=== PATIENT | female | born 1960 | race Caucasian/White ===

== ENCOUNTER 2021-04-04 11:24 | Outpatient (CLI) | payer MEDICARE, OTHER, SELFPAY ==
[2021-04-04 11:10] VITALS: BP 85/53; PULSE 79; RESP 16; TEMP 37.3; O2SAT 91
[2021-04-04] MEDS: 0.9% Saline Lock 10 ML Syringe IV (11:22)
[2021-04-04] MEDS: 0.9% Normal Saline 1,000 ML 999 ML IV (11:25)
[2021-04-04 11:38] VITALS: BP 93/62; PULSE 73; RESP 16; TEMP 37.3; O2SAT 91; BMI 22.4
[2021-04-04 12:36] VITALS: BP 108/70; PULSE 85; RESP 16; TEMP 36.8; O2SAT 18
[2021-04-04 13:09] VITALS: BP 109/71; PULSE 84; RESP 18; TEMP 37.3; O2SAT 93
[2021-04-04 14:12] VITALS: BP 111/72; PULSE 88; RESP 18; TEMP 37.3; O2SAT 93
== END 2021-04-04 14:13 | disposition home or self-care (01) ==
LOC: MS3OUT 11:24 → MS3 11:25
PROVIDERS: Referring Provider Nurse Practitioner Acute Care; Visit Provider Nurse Practitioner Acute Care
DX: Z23 Encounter for immunization (principal); U07.1 COVID-19; D84.9 Immunodeficiency, unspecified
CPT/HCPCS: J7030; M0245; Q0245